=== PATIENT | female | born 1995 | race Hispanic/Latino ===

== ENCOUNTER 2019-03-30 17:03 | Emergency (ER) | payer SELFPAY ==
[2019-03-30] MEDS ORDERED: KETOROLAC 30 MG/ML INJ ONE (17:29)
[2019-03-30] MEDS ORDERED: FAMOTIDINE 20 MG/2 ML VIAL IV ONE (17:43)
[2019-03-30] MEDS ORDERED: ONDANSETRON 4 MG/2 ML VIAL ONE (17:43)
[2019-03-30] MEDS ORDERED: NA CHLORIDE 0.9% 1,000 ML ONE (17:43)
[2019-03-30 17:48] LABS: Absolute Lymphocytes (CBC) 2.9 K/uL (0.7-4.9); Basophils % 0.7 % (0-1.3); Hematocrit 42.7 % (36.0-45.0); Lymphocytes % 27.8 % (15.3-44.8); MPV 9.2 fL (7.6-11.3); RBC Red Blood Cell Count 4.91 M/uL (3.86-4.86)
[2019-03-30 18:08] LABS: ALT/SGPT 26 U/L (12-78); AST/SGOT 12 U/L (15-37); Alkaline Phosphatase 64 U/L (45-117); BUN Blood Urea Nitrogen 10 mg/dL (7-18); Bicarbonate 26 mmol/L (21-32); Bilirubin Direct < 0.1 mg/dL (0-0.2); Bilirubin Total 0.3 mg/dL (0.2-1.0); Glucose Level 105 mg/dL (74-106); Lipase 149 U/L (73-393); Potassium 3.8 mmol/L (3.5-5.1); Protein, Total 7.7 g/dL (6.4-8.2); Sodium Level 141 mmol/L (136-145)
--- NOTE | 2019-03-30 19:05 | RAD REPORT ---
EXAM DESCRIPTION: US - Abdomen Exam Limited - 03/30/2019 6:42 pm CLINICAL HISTORY: Abdominal pain. COMPARISON: None. FINDINGS: The gallbladder wall is not thickened. A gallstone is not seen. The biliary tree is normal caliber. IMPRESSION: Unremarkable gallbladder ultrasound.
[2019-03-30 19:14] LABS: Urine Blood 2+ (NEG); Urine Glucose NEGATIVE (NEG); Urine Protein NEGATIVE (NEG); Urine Specific Gravity 1.015 (1.005-1.030)
--- NOTE | 2019-03-30 19:18 | ER ---
Nurse's Notes [facility] Name: Talisha Gaviria Age: 23 yrs Sex: Female : 1995 Arrival Date: 03/30/2019 Time: 17:06 Bed 20 Private MD: Diagnosis: Epigastric pain Presentation: 03/30 17:09 Presenting complaint: Patient states: Epigastric pain and N/V that started 2 days ago aj and is worse with eating. Transition of care: patient was not received from another setting of care. Onset of symptoms was March 28, 2019. Risk Assessment: Do you want to hurt yourself or someone else? Patient reports no desire to harm self or others. Initial Sepsis Screen: Does the patient meet any 2 criteria? No. Patient's initial sepsis screen is negative. Does the patient have a suspected source of infection? No. Patient's initial sepsis screen is negative. Care prior to arrival: None. 17:09 Method Of Arrival: Ambulatory aj 17:09 Acuity: MARCIA 3 aj Triage Assessment: 17:10 General: Appears in no apparent distress. uncomfortable, Behavior is calm, cooperative, aj appropriate for age. Pain: Complains of pain in epigastric area. Neuro: Level of Consciousness is awake, alert, obeys commands, Oriented to person, place, time, situation, Appropriate for age. Respiratory: Airway is patent Respiratory effort is even, unlabored, Respiratory pattern is regular, symmetrical. GI: Reports epigastric pain, nausea, vomiting. Derm: Skin is intact, is healthy with good turgor, Skin is pink, warm \T\ dry. normal. 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 - Social history:: Smoking status: Patient/guardian denies using tobacco. - Ebola Screening: : No symptoms or risks identified at this time. Screenin:35 Abuse screen: Denies threats or abuse. Nutritional screening: No deficits noted. em Tuberculosis screening: No symptoms or risk factors identified. Fall Risk None identified. Assessment: 17:35 General: Appears in no apparent distress. comfortable, Behavior is calm, cooperative, em Denies. Pain: Complains of pain in abdomen and epigastric area Pain radiates to right upper quadrant and left upper quadrant Pain currently is 7 out of 10 on a pain scale. Quality of pain is described as burning, Pain began 2-3 days ago. Neuro: Level of Consciousness is awake, alert, obeys commands, Oriented to person, place, time, situation. Cardiovascular: Capillary refill < 3 seconds Patient's skin is warm and dry. Respiratory: Airway is patent Respiratory effort is even, unlabored, Respiratory pattern is regular, symmetrical. GI: Abdomen is flat, Bowel sounds present X 4 quads. Abd is soft X 4 quads Abdomen is tender to palpation in epigastric area, right upper quadrant and left upper quadrant Reports diarrhea, nausea, vomiting. : Denies burning with urination, discharge, vaginal bleeding. Derm: Skin is intact, is healthy with good turgor, Skin is pink, warm \T\ dry. Musculoskeletal: Capillary refill < 3 seconds, Range of motion: intact in all extremities. 18:30 Reassessment: Patient appears in no apparent distress at this time. Patient and/or em family updated on plan of care and expected duration. Pain level reassessed. rates pain 3/10 Patient states feeling better. Patient states symptoms have improved. 19:01 Reassessment: Patient appears in no apparent distress at this time. Patient and/or em family updated on plan of care and expected duration. Pain level reassessed. Patient is alert, oriented x 3, equal unlabored respirations, skin warm/dry/pink. currently does not want pain medications, SHEREE Brown notified of request Patient states feeling better. 19:10 Reassessment: Patient appears in no apparent distress at this time. Patient and/or cc3 family updated on plan of care and expected duration. Pain level reassessed. Patient is alert, oriented x 3, equal unlabored respirations, skin warm/dry/pink. Received this female patient from morning shift [employer] as a case of abdominal pain but currently the patient is not in pain. With IV cannula gauge 20 at the right ACV saline locked. Patient just came back from ultrasound department, awaiting result. Patient denies pain at this time. Patient states feeling better. Patient states symptoms have improved. General: Appears in no apparent distress. comfortable, Behavior is calm, cooperative, appropriate for age. Pain: Denies pain. Neuro: Level of Consciousness is awake, alert, obeys commands, Oriented to person, place, time, situation, Appropriate for age. Cardiovascular: Denies chest pain, Capillary refill < 3 seconds Patient's skin is warm and dry. Respiratory: Airway is patent Respiratory effort is even, unlabored, Respiratory pattern is regular, symmetrical. GI: Abdomen is flat. : No signs and/or symptoms were reported regarding the genitourinary system. Denies burning with urination, discharge, vaginal bleeding. EENT: No signs and/or symptoms were reported regarding the EENT system. Derm: Skin is intact, is healthy with good turgor, Skin is pink, warm \T\ dry. normal. Musculoskeletal: Circulation, motion, and sensation intact. Range of motion: intact in all extremities. 19:25 Reassessment: Patient appears in no apparent distress at this time. Patient and/or cc3 family updated on plan of care and expected duration. Pain level reassessed. Patient is alert, oriented x 3, equal unlabored respirations, skin warm/dry/pink. PA Page discharged the patient home with prescription given. IV cannula removed and patient left ER vitally stable and ambulatory. No valuables left in the patient's room. Patient denies pain at this time. Patient states feeling better. Patient states symptoms have improved. Vital Signs: 17:10 BP 150 / 80; Pulse 53; Resp 16; Temp 98.1; Pulse Ox 95% on R/A; Weight 89.81 kg; Height aj 5 ft. 9 in. (175.26 cm); 17:50 BP 109 / 57; Pulse 84; Resp 18; Pulse Ox 100% on R/A; Pain 7/10; em 19:03 BP 117 / 63; Pulse 67; Resp 16; Pulse Ox 99% on R/A; Pain 3/10; em 19:25 BP 112 / 61; Pulse 65; Resp 16 S; Temp 98.6(O); Pulse Ox 99% on R/A; Pain 0/10; cc3 17:10 Body Mass Index 29.24 (89.81 kg, 175.26 cm) ED Course: 17:06 Patient arrived in ED. mr 17:10 Triage completed. aj 17:10 Arm band placed on right wrist. Patient placed in an exam room. aj 17:14 Link Canales PA is PHCP. cp 17:14 Bacilio Elias MD is Attending Physician. cp 17:25 David Laguna LVN is Primary Nurse. em 17:35 Patient has correct armband on for positive identification. Bed in low position. Call em light in reach. Adult w/ patient. Pulse ox on. NIBP on. 17:50 Ultrasound completed. Patient tolerated well. 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 sg3 18:42 US Abdomen Limited In Process Unspecified. EDMS 18:53 XRAY Abdomen With Erect In Process Unspecified. EDMS 19:25 No provider procedures requiring assistance completed. IV discontinued, intact, cc3 bleeding controlled, No redness/swelling at site. Pressure dressing applied. Administered Medications: 17:50 Drug: Zofran 4 mg Route: IVP; Site: right antecubital; iw 19:00 Follow up: Response: No adverse reaction; Nausea is decreased em 17:50 Drug: Pepcid 20 mg Route: IVP; Site: right antecubital; iw 19:01 Follow up: Response: No adverse reaction; Marked relief of symptoms em 17:50 Drug: NS 0.9% 1000 ml Route: IV; Rate: 1 bolus; Site: right antecubital; em 19:01 Follow up: IV Status: Completed infusion; IV Intake: 1000ml em 19:11 Not Given (Patient Refused; patient not in pain): TORadol 30 mg IVP once cc3 Intake: 19:01 IV: 1000ml; Total: 1000ml. em Outcome: 19:17 Discharge ordered by MD. cp 19:25 Discharged to home ambulatory, with family. cc3 19:25 Condition: stable 19:25 Discharge instructions given to patient, Instructed on discharge instructions, follow up and referral plans. medication usage, Demonstrated understanding of instructions, follow-up care, medications, Prescriptions given X 2. 19:28 Patient left the ED. cc3 Signatures: Dispatcher [employer] Chayito Fuentes RN RN aj Rivera, Aleida mr David Laguna, ASPHALT BLENDER ASPHALT BLENDER em Sasha Black RN RN Link Canales PA PA cp Godinez, Sarah sg3 Stephanie Joseph cc3
--- NOTE | 2019-03-30 19:18 | EDPHYS ---
Physician Documentation [facility] Name: Talisha Gaviria Age: 23 yrs Sex: Female : 1995 Arrival Date: 03/30/2019 Time: 17:06 Bed 20 Private MD: ED Physician Bacilio Elias HPI: 03/30 17:15 This 23 yrs old Female presents to ER via Ambulatory with complaints of cp Abdominal Pain. 17:15 The patient presents with abdominal pain in the epigastric area. cp 17:15 Onset: The symptoms/episode began/occurred 2 day(s) ago. The symptoms radiate to back. cp Associated signs and symptoms: Pertinent positives: nausea, Pertinent negatives: blood in stools, chest pain, constipation, diarrhea, dysuria, fever, active vomiting. The symptoms are described as waxing/waning. Modifying factors: the symptoms are aggravated by food. Severity of pain: in the emergency department the pain is unchanged despite home interventions. 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 - Social history:: Smoking status: Patient/guardian denies using tobacco. - Ebola Screening: : No symptoms or risks identified at this time. ROS: 17:20 Constitutional: Negative for body aches, chills, fever, poor PO intake. cp 17:20 Eyes: Negative for injury, pain, redness, and discharge. cp 17:20 ENT: Negative for drainage from ear(s), ear pain, sore throat, difficulty swallowing, difficulty handling secretions. 17:20 Cardiovascular: Negative for chest pain, edema, palpitations. 17:20 Respiratory: Negative for cough, shortness of breath, wheezing. 17:20 Abdomen/GI: Positive for abdominal pain, nausea, Negative for diarrhea, constipation, active vomiting. 17:20 Back: Positive for radiated pain. 17:20 : Negative for urinary symptoms. 17:20 All other systems are negative. Exam: 17:30 Constitutional: The patient appears in no acute distress, alert, awake, non-toxic, well cp developed, well nourished, uncomfortable. 17:30 Head/Face: Normocephalic, atraumatic. cp 17:30 Eyes: Periorbital structures: appear normal, Conjunctiva: normal, no exudate, no injection, Sclera: no appreciated abnormality, Lids and lashes: appear normal, bilaterally. 17:30 ENT: External ear(s): are unremarkable, Nose: is normal, Mouth: Lips: moist, Oral mucosa: pink and intact, moist, Posterior pharynx: is normal, airway is patent, no erythema, no exudate. 17:30 Chest/axilla: Inspection: normal, Palpation: is normal, no crepitus, no tenderness. 17:30 Cardiovascular: Rate: bradycardic, Rhythm: regular. 17:30 Respiratory: the patient does not display signs of respiratory distress, Respirations: normal, no use of accessory muscles, no retractions, no splinting, no tachypnea, labored breathing, is not present, Breath sounds: are clear throughout, no decreased breath sounds, no stridor, no wheezing. 17:30 Abdomen/GI: Inspection: abdomen appears normal, Bowel sounds: active, all quadrants, Palpation: soft, in all quadrants, moderate abdominal tenderness, in the epigastric area and right upper quadrant, rebound tenderness, is not appreciated, voluntary guarding, is elicited in the epigastric area and right upper quadrant. 17:30 Back: pain, of the mid back area, ROM is normal. 17:30 Skin: no rash present. Vital Signs: 17:10 BP 150 / 80; Pulse 53; Resp 16; Temp 98.1; Pulse Ox 95% on R/A; Weight 89.81 kg; Height aj 5 ft. 9 in. (175.26 cm); 17:50 BP 109 / 57; Pulse 84; Resp 18; Pulse Ox 100% on R/A; Pain 7/10; em 19:03 BP 117 / 63; Pulse 67; Resp 16; Pulse Ox 99% on R/A; Pain 3/10; em 19:25 BP 112 / 61; Pulse 65; Resp 16 S; Temp 98.6(O); Pulse Ox 99% on R/A; Pain 0/10; cc3 17:10 Body Mass Index 29.24 (89.81 kg, 175.26 cm) aj MDM: 17:15 Patient medically screened. cp 19:16 Data reviewed: vital signs, nurses notes, lab test result(s), radiologic studies, plain cp films, ultrasound. 19:16 Differential diagnosis: cholecystitis, Cholelithiasis, gastritis, pancreatitis, Peptic cp Ulcer Disease, Perf. Duodenal Ulcer, Perf. Gastric Ulcer, Ureterolithiasis, urinary tract infection. Test interpretation: by ED physician or midlevel provider: xrays of abdomen negative for obstruction or perforation. Counseling: I had a detailed discussion with the patient and/or guardian regarding: the historical points, exam findings, and any diagnostic results supporting the discharge/admit diagnosis, lab results, radiology results, to return to the emergency department if symptoms worsen or persist or if there are any questions or concerns that arise at home. Response to treatment: the patient's symptoms have markedly improved after treatment, and as a result, I will discharge patient. Special discussion: Based on the patient's Hx, exam, and Dx evaluation, there is no indication for emergent surgery or inpatient Tx. It is understood by the patient/guardian that if the Sx's persist or worsen they need to return immediately for re-evaluation. 03/30 17:25 Order name: Basic Metabolic Panel; Complete Time: 18:23 cp 03/30 17:25 Order name: CBC with Diff; Complete Time: 18:08 cp 03/30 18:24 Interpretation: Normal except: RBC 4.91; EOSINOPHIL % 8.4; EOSA 0.9. cp 03/30 17:25 Order name: Creatinine for Radiology; Complete Time: 18:08 cp 03/30 17:25 Order name: Hepatic Function; Complete Time: 18:23 cp 03/30 17:14 Order name: US Abdomen Limited snw 03/30 17:25 Order name: Lipase; Complete Time: 18:23 cp 03/30 18:24 Order name: XRAY Abdomen With Erect cp 03/30 18:59 Order name: Urine Dipstick--Ancillary (enter results) 03/30 18:59 Order name: Urine --Ancillary (enter results) eb 03/30 17:12 Order name: Urine Test (obtain specimen); Complete Time: 18:53 snw 03/30 17:12 Order name: Urine Dipstick-Ancillary (obtain specimen); Complete Time: 18:53 snw 08/03 17:25 Order name: IV Saline Lock; Complete Time: 17:54 cp 08 17:25 Order name: Labs collected and sent; Complete Time: 17:54 cp 03/30 19:05 Order name: PO challenge; Complete Time: 19:15 cp Administered Medications: 17:50 Drug: Zofran 4 mg Route: IVP; Site: right antecubital; iw 19:00 Follow up: Response: No adverse reaction; Nausea is decreased em 17:50 Drug: Pepcid 20 mg Route: IVP; Site: right antecubital; iw 19:01 Follow up: Response: No adverse reaction; Marked relief of symptoms em 17:50 Drug: NS 0.9% 1000 ml Route: IV; Rate: 1 bolus; Site: right antecubital; em 19:01 Follow up: IV Status: Completed infusion; IV Intake: 1000ml em 19:11 Not Given (Patient Refused; patient not in pain): TORadol 30 mg IVP once cc3 Disposition: 03/31 07:05 Co-signature as Attending Physician, Bacilio Elias MD. rn Disposition: 03/30/19 19:17 Discharged to Home. Impression: Epigastric pain. - Condition is Stable. - Discharge Instructions: Abdominal Pain, Adult. - Prescriptions for Protonix 40 mg Oral Tablet - take 1 tablet by ORAL route once daily; 30 tablet. Zofran 4 mg Oral Tablet - take 1 tablet by ORAL route every 12 hours As needed; 20 tablet. - Medication Reconciliation Form, Thank You Letter, Antibiotic Education, Prescription Opioid Use form. - Follow up: Private Physician; When: 2 - 3 days; Reason: Worsening of condition. - Problem is new. - Symptoms have improved. Signatures: Dispatcher [employer] Chayito Fuentes, RN RN Ivana Amor, LONGITUDINAL FLOAT OPERATOR-C LONGITUDINAL FLOAT OPERATOR-Csnw David Laguna, JUNIOR SALES REPRESENTATIVE JUNIOR SALES REPRESENTATIVE em Sasha Black RN RN iw Nieto, Roman, MD MD rn Page, Corey, PA PA cp Cordel, Charlene cc3 Corrections: (The following items were deleted from the chart) 03/30 18:24 18:08 Normal except: RBC 4.91. cp cp 19:28 19:17 03/30/2019 19:17 Discharged to Home. Impression: Epigastric pain. Condition is cc3 Stable. Forms are Medication Reconciliation Form, Thank You Letter, Antibiotic Education, Prescription Opioid Use. Follow up: Private Physician; When: 2 - 3 days; Reason: Worsening of condition. Problem is new. Symptoms have improved. cp
--- NOTE | 2019-03-30 20:05 | RAD REPORT ---
EXAM DESCRIPTION: RAD - Abdomen W Erect - 03/30/2019 6:59 pm CLINICAL HISTORY: Abdominal pain FINDINGS: Free air is not seen beneath the diaphragm. The bowel gas pattern is unremarkable. An 8 millimeter calcific density overlies right aspect of the sacrum. This may represent a bone islan d or a phlebolith. An appendicolith can also have this appearance. If the patient has clinical sympto ms to suggest appendicitis then CT scan with oral contrast and opacification of the terminal ileum/ce cum would be recommended
== END 2019-03-30 19:28 | disposition home or self-care (01) ==
LOC: ER 17:03
DX: R10.13 Epigastric pain (principal)
CPT/HCPCS: 36415; 74019; 76705; 80048; 80076; 81003; 81025; 83690; 85025; 96361; 96374; 96375; 99284; J2405; J7030